=== PATIENT | male | born 1965 | race Two or more races ===

== ENCOUNTER 2017-01-31 10:10 | Emergency (ER) | payer OTHER ==
[~2017-01-31] VITALS: Ht 170.2 cm; Wt 73.0 kg
[2017-01-31] MEDS ORDERED: SODIUM CHLORIDE 0.9% 1,000ML IVBOLUS ONE (11:00)
[2017-01-31] MEDS ORDERED: SODIUM CHLORIDE FLUSH 10ML SYR IVF ONE (11:00)
[2017-01-31] MEDS ORDERED: MORPHINE SULFATE 4 MG/ML, 1ML IVPush PRN (11:00)
[2017-01-31] MEDS ORDERED: MORPHINE SULFATE 4 MG/ML, 1ML ONE (11:05)
[2017-01-31 11:24] LABS: BLOOD UREA NITROGEN 8 mg/dL (7-18)
[2017-01-31 11:29] LABS: IS PT STATUS REG ER OR PRE ER? YES
[2017-01-31] MEDS ORDERED: ACETAMINOPHEN 500 MG TABLET ONE (13:12)
[2017-01-31 13:29] VITALS: BP 125/72
[2017-01-31] MEDS ORDERED: ACETAMINOPHEN 325 MG TABLET PO ONE (13:30)
== END 2017-01-31 13:33 | disposition home or self-care (01) ==
LOC: ED 11:01
DX: J20.9 Acute bronchitis, unspecified (principal)
CPT/HCPCS: 36415; 71010; 80048; 82040; 83605; 84484; 85025; 85379; 93005; 96361; 96374; 99285; J7030